=== PATIENT | female | born 1965 | race Caucasian/White ===

== ENCOUNTER → 2023-10-12 10:06 | Outpatient (REF) | payer BC, SELFPAY | LOC: WDC 10:06 | PROVIDERS: ATTENDING PHYSICIAN Obstetrics & Gynecology Gynecology | DX: N63.10 Unspecified lump in the right breast, unspecified quadrant (principal); N63.12 Unspecified lump in the right breast, upper inner quadrant | CPT/HCPCS: 76642; 77062; 77066 ==

== ENCOUNTER 2024-05-12 08:40 | Emergency (ER) | payer BC, SELFPAY ==
[2024-05-12 08:54] VITALS: BP 113/90
--- NOTE | 2024-05-12 09:32 | ED.GENMED ---
History of Present Illness
General
Chief Complaint: Musculo-Skeletal Complaint
Source: patient and spouse
Exam Limitations: none
Time Seen by Provider: 05/12/24 09:02
Nursing documentation reviewed up to this point in time: agreed with
History of Present Illness
History of Present Illness:
58-year-old female with past medical history of hypertension GERD hypothyroidism presenting to the emergency department today with concerns of left-sided knee pain over the past 3 days and feeling unstable at her knee today. This prompted her to
come to the ER. Denies any numbness weakness changes in range of motion. Denies any redness warmth or fevers.
Review of Systems
Review of Systems
Allergies reviewed?: Yes
All Other Systems: ROS reviewed and negative except as documented in HPI and ROS
Phy Exam
Physical Exam
Physical Exam:
GENERAL: Alert , in no apparent distress
EYE: pupils equal and reactive
NECK: Supple, no significant adenopathy.
ENT: o/p clr, mmm.
CARDIAC: Regular rate and rhythm .
LUNGS: Clear breath sounds bilaterally, no acute respiratory distress, no wheezes/rales/rhonchi
ABDOMEN: Soft, without focal tenderness, no r/g, no cvat
NEUROLOGICAL: Alert and oriented, no focal neuro deficits
SKIN: Warm and dry, skin intact.
MUSCULOSKELETAL: Patient is no focal tenderness good range of motion of the knee ankle and hip. Patient does seem to have some increased laxity with both valgus and varus stress of the left knee compared to the right. No laxity with the ACL or PCL
with Tayla and posterior drawer test. No edema, well perfused.
PSYCH: Normal and appropriate interaction.
Course
Orders/Labs/Results
Orders:
Orders
05/12/24 08:58
Knee, Left 4 or More Views [CR Knee - Left 4 Or More View*] Urgent
Comment: denies trauma
Reason For Exam: left knee pain diff ambulating
05/12/24 09:31
Knee Immobilizer Left-Treatmen ONCE
Vital Signs
Initial and Last Documented VS:
Initial Vital Signs
Temp Pulse Resp BP Pulse Ox
98.0 F 66 16 113/90 98
05/12/24 08:54 05/12/24 08:54 05/12/24 08:54 05/12/24 08:54 05/12/24 08:54
Last Documented Vital Signs
Temp Pulse Resp BP Pulse Ox
98.0 F 66 16 113/90 98
05/12/24 08:54 05/12/24 08:54 05/12/24 08:54 05/12/24 08:54 05/12/24 08:54
MDM/Problems Addressed
MDM/Problems Addressed:
58-year-old female presenting to the emergency department today with concerns of left-sided knee pain and instability over the past 3 days. Here there is some laxity with varus and valgus stress otherwise normal knee examination no evidence of
infection no redness or warmth no fevers normal vital signs. Good range of motion otherwise x-ray without signs of fracture. Patient was placed in a knee brace due to the instability and will follow-up closely with orthopedics. Return precautions
given.
*Critical Care Note
Total Time (30-74mins, 75-104mins- exclusive of procedures): Not Applicable
ED Attending Note
-
Portions of this chart may have been created with voice recognition software.� Occasional wrong word or��sound alike� substitutions may have occurred due to the inherent limitations of voice recognition software.
Discharge Plan
Departure
Patient Disposition: Home (Routine Discharge)
Date of Disposition: 05/12/24
Time of Disposition: 09:35
Patient with high blood pressure during this ER visit?: No
Covid-19: Not Applicable
Discharge Problem:
Joint laxity of left knee, Knee instability
Instructions: Knee Immobilizer (DC), Knee Sprain (DC)
Referrals:
Connor Rodgers MD [Active] - Follow up in 5-7 days
UNKNOWN - PT DOES,NOT KNOW [Family Provider] -
Activity Restrictions/Additional Instructions:
You came to the emergency department today with concerns of knee instability. Please use the knee immobilizer as needed and follow-up closely with orthopedics for further recommendation. Return to the emergency department for any worsening, new or
concerning symptoms.
Interventions
Interventions:
*Risk Screen - Suicide Last Done: 05/12/24 08:54
*General Assessment Last Done: 05/12/24 09:11
*Neglect/Abuse Screening Last Done: 05/12/24 08:54
ED- Fall Risk Assessment Last Done: 05/12/24 09:13
*ED COVID-19 Vaccine History Last Done: 05/12/24 09:11
ED-Musculoskeletal Assessment Last Done: 05/12/24 09:11
Discharge Date and Time
Print Language: SINHALA
== END 2024-05-12 09:52 | disposition home or self-care (01) ==
LOC: EMR 08:40
PROVIDERS: EMERGENCY PHYSICIAN Emergency Medicine
DX: M25.262 Flail joint, left knee (principal); M25.362 Other instability, left knee; I10 Essential (primary) hypertension; E03.9 Hypothyroidism, unspecified; K21.9 Gastro-esophageal reflux disease without esophagitis
CPT/HCPCS: 99283; 29505; 73564

== ENCOUNTER → 2024-06-13 13:16 | Outpatient (REF) | payer BC, SELFPAY | LOC: PAVMRI 13:16 | PROVIDERS: ATTENDING PHYSICIAN Orthopaedic Surgery | DX: M25.562 Pain in left knee (principal) | CPT/HCPCS: 73721 ==

== ENCOUNTER → 2025-03-22 19:27 | Outpatient (REF) | payer BC, SELFPAY | LOC: WDC 19:27 | PROVIDERS: ATTENDING PHYSICIAN Obstetrics & Gynecology Gynecology | DX: Z12.31 Encounter for screening mammogram for malignant neoplasm of breast (principal) | CPT/HCPCS: 77063; 77067 ==